=== PATIENT | female | born 1985 | race Caucasian/White ===

== ENCOUNTER 2016-12-10 16:12 | Emergency (ER) | payer MEDICAID ==
--- NOTE | 2017-01-10 21:14 | ER ---
ADMIT: 12/10/2016 RM/LOC: ER [facility] MR#: [id number] [address] [facility] [address] [place] [id number] SHY LOPEZ [address] [facility] [address] [place] [address] Emergency Room Report SEX: F AGE: 31 : 1985 DATE: 12/10/2016 ADDENDUM: CHIEF COMPLAINT: Bloody diarrhea. HISTORY OF PRESENT ILLNESS: This is a 31-year-old who had bloody diarrhea for the last couple of days. Pain mostly in her left lower quadrant and then also in her right lower back. She was also bit by a rabbit, she believes on a Thursday, which is 3-4 days ago. She does not know if the two could be related. COURSE IN EMERGENCY ROOM: I did CBC, BMP, she was not able to have a bowel movement while here, then sent her home with a stool kit. Her CBC was normal. Her chemistries were normal. She does not have any symptoms of rabies. Her main stools were just bloody stool. She does have a history of possible colitis. Also has a sister who has colon cancer, so this is also concerned for her last colonoscopy 2 years ago, which showed polyps. At this time, I did offer to do a CAT scan to make sure everything was okay. On top of the blood work, she does not want any CT done. She states she will follow up. I am sending her home with a stool kit. Giving her Bentyl for cramping. I did look up on [employer] Date. There are no rabbits in history that has ever given rabies. This reassured her little bit. We also contacted [employer]. They are going to try to find the rabbit. She states she threw it in the dumpster after it had and they will test the rabbit for rabies. CLINICAL IMPRESSION: 1. Rabbit bite. 2. Bloody diarrhea. DISPOSITION: I am having her go home. Push fluids. Gatorade and Powerade. Use Tylenol and Bentyl for pain. Call the primary care physician if worsens. CONNOR Adrian / Codey Adam MD / perezl JOB #: [id number] CC: Codey Adam MD, Attending Physician UNKNOWN, Family Physician
[2017-06-16] MEDS ORDERED: ULTRAM DPS50 MG PO (19:50)
== END 2016-12-10 19:33 | disposition home or self-care (01) ==
LOC: ER 16:12
DX: S60.414A Abrasion of right ring finger, initial encounter (principal); S60.811A Abrasion of right wrist, initial encounter; R19.7 Diarrhea, unspecified; Z88.5 Allergy status to narcotic agent; Z91.040 Latex allergy status; W64.XXXA Exposure to other animate mechanical forces, initial encounter